=== PATIENT | female | born 1965 | race Caucasian/White ===

== ENCOUNTER 2018-10-29 11:33 | Day surgery (SDC) | payer OTHER ==
[~2018-10-29] VITALS: Ht 157.5 cm; Wt 93.8 kg
[~2018-10-29 11:33] MED LIST: LISI1TAB4 PO; LORA10TA3 PO; METF500T24 PO; OMEP20CA16 PO; SIMV40TA2 PO; SIMVASTATIN; SUMA25TA3 PO; vitamins; zantac
[2018-10-29 12:42] VITALS: Ht 157.5 cm; Wt 93.8 kg
[2018-10-29 13:19] VITALS: BP 136/63; PULSE 58; RESP 16
[2018-10-29] MEDS ORDERED: FENTAnyl 50 MCG/ML VIAL ONE (13:49)
[2018-10-29] MEDS ORDERED: PROPOFOL 20 ML ONE (13:49)
[2018-10-29 14:47] VITALS: BP 127/60; PULSE 64; RESP 18
== END 2018-10-29 16:01 | disposition home or self-care (01) ==
LOC: GIL 11:33
PROVIDERS: ATTEND Internal Medicine Gastroenterology
DX: D50.9 Iron deficiency anemia, unspecified (principal); K64.8 Other hemorrhoids; D12.5 Benign neoplasm of sigmoid colon; K21.0 Gastro-esophageal reflux disease with esophagitis; I10 Essential (primary) hypertension; E11.9 Type 2 diabetes mellitus without complications; Z79.84 Long term (current) use of oral hypoglycemic drugs
CPT/HCPCS: 43239; 45380; 82962; 88305; 88312; J3010; Z7610